=== PATIENT | male | born 1970 | race Caucasian/White ===

== ENCOUNTER 2020-07-04 17:29 | Emergency (ER) | payer BC ==
--- NOTE | 2020-07-04 20:21 | EDM.PDOC ---
ED HPI GENERAL MEDICAL PROBLEM - General Chief Complaint: Fever Stated Complaint: COUGH,FEVER Time Seen by Provider: 07/04/20 18:20 Source of Information: Reports: Patient History Limitations: Reports: No Limitations - History of Present Illness INITIAL COMMENTS - FREE TEXT/NARRATIVE: Marcellus is a 50-year-old male with a multitude of complaints including right-sided ear pain, sore throat for a week, headache, body aches, nausea, and mild shortness of breath. He said the symptoms started last Friday and he has had intermittent fevers since then. Today he comes in because of persistent fever and night sweats last night. 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 No one else at home has been ill. He denies any nausea, vomiting, or diarrhea. Right Ear Pain Score (Numeric/FACES): 6 - Related Data Allergies Allergy/AdvReac Type Severity Reaction Status Date / Time No Known Allergies Allergy Verified 07/04/20 18:04 Home Meds: Home Meds Omeprazole 40 mg PO DAILY 10/31/17 [History] SUMAtriptan succinate [Imitrex] 50 mg PO Q12HR PRN 10/31/17 [History] atorvaSTATin [Lipitor] 20 mg PO DAILY 10/31/17 [History] Past Medical History HEENT History: Reports: None Cardiovascular History: Reports: None Respiratory History: Reports: None Gastrointestinal History: Reports: Cholelithiasis Genitourinary History: Reports: None Musculoskeletal History: Reports: Other (See Below) Other Musculoskeletal History: Left Shoulder Pain Neurological History: Reports: Migraines Psychiatric History: Reports: None Endocrine/Metabolic History: Reports: None Hematologic History: Reports: None Immunologic History: Reports: None Oncologic (Cancer) History: Reports: None Dermatologic History: Reports: None - Infectious Disease History Infectious Disease History: Reports: Chicken Pox - Past Surgical History HEENT Surgical History: Reports: None GI Surgical History: Reports: Cholecystectomy Musculoskeletal Surgical History: Reports: None Social & Family History - Tobacco Use Tobacco Use Status *Q: Former Tobacco User Used Tobacco, but Quit: Yes Month/Year Tobacco Last Used: 20 years - Caffeine Use Caffeine Use: Reports: Soda - Recreational Drug Use Recreational Drug Use: No ED ROS ENT - Review of Systems Review Of Systems: See Below Constitutional: Reports: Fever, Chills, Malaise, Fatigue, Night Sweats HEENT: Reports: Ear Pain (Right air) Respiratory: Reports: Shortness of Breath (Mild) Cardiovascular: Reports: No Symptoms Endocrine: Reports: Fatigue GI/Abdominal: Reports: Anorexia, Nausea : Reports: No Symptoms Musculoskeletal: Reports: Muscle Pain (Generalized) Skin: Reports: No Symptoms Neurological: Reports: Headache Psychiatric: Reports: No Symptoms Hematologic/Lymphatic: Reports: No Symptoms Immunologic: Reports: No Symptoms ED EXAM, ENT - Physical Exam Exam: See Below Exam Limited By: No Limitations General Appearance: Alert, Mild Distress, Other (Ill-appearing) Eye Exam: Bilateral Eye: EOMI, PERRL Ears: Normal External Exam, Normal Canal, Hearing Grossly Normal, Normal TMs Nose: Clear Rhinorrhea, Nasal Discharge, Nasal Swelling Mouth/Throat: Pharyngeal Erythema, Throat Pain. No: Throat Swelling, Tongue Swelling, Tonsillar Erythema, Tonsillar Exudates, Tonsillar Swelling, Uvular Edema Head: Atraumatic, Normocephalic Neck: Normal Inspection, Supple, Non-Tender, Full Range of Motion Respiratory/Chest: No Respiratory Distress, Lungs Clear, Normal Breath Sounds, No Accessory Muscle Use, Chest Non-Tender Cardiovascular: Normal Peripheral Pulses, Regular Rate, Rhythm, No Edema, No JVD, No Murmur GI/Abdominal: Normal Bowel Sounds, Soft, Non-Tender, No Organomegaly, No Distention (Male) Exam: Deferred Rectal (Males) Exam: Deferred Back: Normal Inspection, Full Range of Motion Extremities: Normal Inspection, Normal Range of Motion, Non-Tender, No Pedal Edema, Normal Capillary Refill Neurological: Alert, Oriented, Normal Cognition, Normal Gait, No Motor/Sensory Deficits Psychiatric: Normal Affect, Normal Mood Skin: Warm, Dry, Intact, Normal Color, No Rash Lymphatic: No Adenopathy Course - Vital Signs Last Recorded V/S: Last Vital Signs Temp 36.4 C 07/04/20 17:59 Pulse 87 07/04/20 17:59 Resp 18 07/04/20 17:59 BP 128/81 07/04/20 17:59 Pulse Ox 95 07/04/20 17:59 - Orders/Labs/Meds Orders: Active Orders 24 hr Category Date Time Status Chest 1V Frontal [CR] Stat Exams 07/04/20 19:18 Taken Labs: Laboratory Tests 07/04/20 07/04/20 07/04/20 Range/Units 18:40 18:40 18:40 WBC 5.3 (4.5-11.0) K/uL RBC 5.24 (4.30-5.90) M/uL Hgb 15.1 H (12.0-15.0) g/dL Hct 46.3 (40.0-54.0) % MCV 88 (80-98) fL MCH 29 (27-31) pg MCHC 33 (32-36) % Plt Count 185 (150-400) K/uL Neut % (Auto) 64 (36-66) % Lymph % (Auto) 27 (24-44) % Foard % (Auto) 9 H (2-6) % Eos % (Auto) 0 L (2-4) % Baso % (Auto) 0 (0-1) % D-Dimer, Quantitative 358.17 (0.0-500.0) ng/mL Sodium (140-148) mmol/L Potassium (3.6-5.2) mmol/L Chloride (100-108) mmol/L Carbon Dioxide (21-32) mmol/L Anion Gap (5.0-14.0) mmol/L BUN (7-18) mg/dL Creatinine (0.8-1.3) mg/dL Est Cr Clr Drug Dosing mL/min Estimated GFR (MDRD) (>60) Glucose (74-106) mg/dL Lactic Acid 1.3 (0.4-2.0) mmol/L Calcium (8.5-10.1) mg/dL Ferritin (8-388) ng/ml Total Bilirubin (0.2-1.0) mg/dL AST (15-37) U/L ALT (12-78) U/L Alkaline Phosphatase (46-116) U/L C-Reactive Protein (0.0-0.3) mg/dL Total Protein (6.4-8.2) g/dL Albumin (3.4-5.0) g/dL Globulin (2.3-3.5) g/dL Albumin/Globulin Ratio (1.2-2.2) SARS-CoV-2 RNA (JOHNNY) (NEGATIVE) 07/04/20 07/04/20 Range/Units 18:45 19:18 WBC (4.5-11.0) K/uL RBC (4.30-5.90) M/uL Hgb (12.0-15.0) g/dL Hct (40.0-54.0) % MCV (80-98) fL MCH (27-31) pg MCHC (32-36) % Plt Count (150-400) K/uL Neut % (Auto) (36-66) % Lymph % (Auto) (24-44) % Foard % (Auto) (2-6) % Eos % (Auto) (2-4) % Baso % (Auto) (0-1) % D-Dimer, Quantitative (0.0-500.0) ng/mL Sodium 138 L (140-148) mmol/L Potassium 3.4 L (3.6-5.2) mmol/L Chloride 102 (100-108) mmol/L Carbon Dioxide 27 (21-32) mmol/L Anion Gap 12.4 (5.0-14.0) mmol/L BUN 15 (7-18) mg/dL Creatinine 1.0 (0.8-1.3) mg/dL Est Cr Clr Drug Dosing 94.75 mL/min Estimated GFR (MDRD) > 60 (>60) Glucose 98 (74-106) mg/dL Lactic Acid (0.4-2.0) mmol/L Calcium 8.3 L (8.5-10.1) mg/dL Ferritin 540 H (8-388) ng/ml Total Bilirubin 0.3 (0.2-1.0) mg/dL AST 29 (15-37) U/L ALT 79 H (12-78) U/L Alkaline Phosphatase 96 (46-116) U/L C-Reactive Protein 1.38 H (0.0-0.3) mg/dL Total Protein 7.2 (6.4-8.2) g/dL Albumin 3.6 (3.4-5.0) g/dL Globulin 3.6 H (2.3-3.5) g/dL Albumin/Globulin Ratio 1.0 L (1.2-2.2) SARS-CoV-2 RNA (JOHNNY) Positive H (NEGATIVE) - Radiology Interpretation Free Text/Narrative:: Chest 2 view: Small haziness in the right base that could indicate a local infl ammatory change or infiltrate. - Re-Assessments/Exams Free Text/Narrative Re-Assessment/Exam: 07/04/20 20:21 Rikki is a 50-year-old male that is positive for COVID-19. This was obtained today on a nasal swab. He has elevation of his ferritin but has a normal WBC count. His D-dimer is also normal at this time. A chest x-ray was obtained showing some haziness in the right lung base which could be secondary to inflammation, however, I am concerned that this may be an early developing pneumonia. We will not start him on antibiotics as his leukocyte count does not support this and it could just simply be inflammation secondary to Covid i.e. the groundglass appearance, however, I have instructed the patient should he develop any significant shortness of breath, cough, or chest pain he should return for reevaluation. I did discuss management of the Covid including staying home and resting, taking plenty of fluids, sticking to foods that will be easy to digest, and isolating from others in the family to limit the spread. He may take Tylenol or ibuprofen for his fever and chills. The patient understands and is in agreement with the plan. We will give him a work note excusing him from work until 10 days from now which is 07/14/2020. Patient also understands and is in agreement with this plan. I did answer all questions and he is suitable for discharge in satisfactory condition. Departure - Departure Time of Disposition: 20:23 Disposition: Home, Self-Care 01 Clinical Impression: COVID-19 - Discharge Information *PRESCRIPTION DRUG MONITORING PROGRAM REVIEWED*: Not Applicable *COPY OF PRESCRIPTION DRUG MONITORING REPORT IN PATIENT MONAE: Not Applicable Instructions: COVID-19, COVID-19: How to Protect Yourself and Others - CDC, Prevent the Spread of COVID-19 if You Are Sick - CDC, COVID-19 Frequently Asked Questions Referrals: PCP,None [Primary Care Provider] - Care Plan Goals: Please stay at home and socially isolate to prevent the spread of the disease. Should you develop any significant shortness of breath, chest pain, or worsening in your symptoms we should see you back for reevaluation. A work note has taken you off work until after 07/14/2020. Sepsis Event Note (ED) - Evaluation Sepsis Screening Result: No Definite Risk - Focused Exam Vital Signs: Vital Signs Temp Pulse Resp BP Pulse Ox 07/04/20 17:59 36.4 C 87 18 128/81 95 - Problem List & Annotations (1) COVID-19 SNOMED Code(s): 873418624 Code(s): U07.1 - COVID-19 Status: Acute Priority: Medium Current Visit: Yes - Problem List Review Problem List Initiated/Reviewed/Updated: Yes - My Orders Last 24 Hours: My Active Orders 07/04/20 19:18 Chest 1V Frontal [CR] Stat - Assessment/Plan Last 24 Hours: My Active Orders 07/04/20 19:18 Chest 1V Frontal [CR] Stat
--- NOTE | 2020-07-05 09:18 | CR ---
CHEST: Portable 07/04/2020 CLINICAL HISTORY:Fever, dyspnea COMPARISON:None FINDINGS: There is patchy infiltrate in the left lower lobe. There is some minimal density in the right infrahilar region. Heart and pulmonary vascularity are normal. There are no effusions. IMPRESSION: Left lower lobe pneumonia Minimal patchy density in the right infrahilar region. Infiltrate is not excluded.
== END 2020-07-04 20:40 | disposition home or self-care (01) ==
LOC: JP.ED 17:29
DX: U07.1 COVID-19 (principal); Z87.891 Personal history of nicotine dependence
CPT/HCPCS: 36415; 71045; 71045-26; 80053; 82728; 83605; 85025; 85379; 86140; 99282; 99283-25; U0002